=== PATIENT | male | born 1970 | race Asian ===

== ENCOUNTER 2023-06-21 14:01 | Inpatient (IN) | payer MEDICAID ==
[~2023-06-21] VITALS: Ht 167.6 cm; Wt 71.4 kg
[2023-06-21] MEDS ORDERED: LORazepam 2 MG/ML VIAL IVP ONE (15:45)
[2023-06-21] MEDS: LORazepam 2 MG/ML VIAL IM ONE (16:49)
[2023-06-21 18:14] LABS: BASOPHILS % (AUTO) 0.4 % (0.0-2.0); EOSINOPHILS % (AUTO) 1.9 % (1.0-6.0); HEMATOCRIT 45.7 % (41-53); HEMOGLOBIN 15.2 g/dL (13.5-17.5); MEAN CORPUSCULAR HEMOGLOBIN 30.8 pg (26.0-34.0); MEAN CORPUSCULAR HGB CONC 33.2 G/dL (31.0-37.0); MEAN CORPUSCULAR VOLUME 93 fL (80-100); MONOCYTES # (AUTO) 0.8 K/uL (0.1-1.0); MONOCYTES % (AUTO) 10.2 % (2.0-9.0); NEUTROPHILS % (AUTO) 62.5 % (40.0-70.0); PLATELET COUNT (AUTO) 177 K/uL (150-450); RED BLOOD CELL COUNT(AUTO) 4.92 MIL/uL (4.50-5.90); RED CELL DISTRIBUTION WIDTH 13.5 % (11.5-14.5)
[2023-06-21 18:21] LABS: ANION GAP 8 mmol/L (8-16); CARBON DIOXIDE 30 mmol/L (22-29); CHLORIDE 100 mmol/L (98-107); CREATININE 1.23 mg/dL (0.60-1.30); GLOMERULAR FILTR. RATE CALC 51 mL/min (>60); GLUCOSE,RANDOM 94 mg/dL (70-110); POTASSIUM 3.4 mmol/L (3.5-5.1); SODIUM SERUM 138 mmol/L (136-145); UREA NITROGEN, BLOOD 22 mg/dL (7-18)
[2023-06-21 18:28] LABS: B-TYPE NATRIURETIC PEPTIDE 78 pg/mL (0-100)
[2023-06-21 18:33] LABS: TROPONIN I-HIGH SENSITIVITY 35 ng/L (<76)
[2023-06-21 18:41] LABS: ALCOHOL, BLOOD (SERUM) < 3 mg/dL (0-10); AMMONIA 15 umol/L (11-32)
[2023-06-21 18:44] LABS: COVID AG,FIA SOURCE NASAL SWAB
[2023-06-21 18:45] LABS: ALANINE AMINOTRANSFERASE 36 U/L (12-78); ALBUMIN 3.9 g/dL (3.4-5.0); ALKALINE PHOSPHATASE 65 U/L (46-116); ASPARTATE AMINOTRANSFERASE 44 U/L (15-37); CREATINE KINASE, TOTAL ONLY 816 U/L (39-308); TOTAL PROTEIN, SERUM 7.9 g/dL (6.4-8.2)
[2023-06-21 18:47] LABS: LACTIC ACID 1.3 mmol/L (0.4-2.0)
[2023-06-21 19:21] LABS: SARS-COV2 (COVID) ANTIGEN,FIA Negative (Negative)
[2023-06-21] MEDS ORDERED: ACETAMINOPHEN 325 MG TABLET PO PRN (20:15)
[2023-06-21] MEDS ORDERED: 0.9% SODIUM CHLORIDE 10 ML SYRINGE IVP PRN (20:15)
[2023-06-21] MEDS ORDERED: ONDANSETRON HCL 4 MG/2 ML VIAL IVP PRN ×2 (20:15→20:30)
[2023-06-21] MEDS ORDERED: POTASSIUM CHL 10 MEQ/WATER 50 ML IV PRN (20:30)
[2023-06-21] MEDS ORDERED: MAGNESIUM HYDROXIDE SUSPENSION 30 ML UDCUP PO PRN (20:30)
[2023-06-21] MEDS ORDERED: BISACODYL 10 MG RECTAL RECTAL SUPPOSITORY PR PRN (20:30)
[2023-06-21] MEDS ORDERED: POTASSIUM CHLORIDE 20 MEQ ER TABLET PO PRN (20:30)
[2023-06-21] MEDS ORDERED: MORPHINE SULFATE 2 MG/ML SYRINGE IVP PRN (20:30)
[2023-06-21] MEDS: DOCUSATE SODIUM 100 MG CAPSULE PO SCH (21:00)
[2023-06-21] MEDS: MAGNESIUM SULFATE 2 GM, MVI, ADULT NO.1 WITH VIT K 10 ML, THIAMINE 100 MG, FOLIC ACID 1... IV ONE (23:31)
[2023-06-21] MEDS: HEPARIN SODIUM,PORCINE 5,000 UNITS/ML VIAL SQ SCH (23:39)
[2023-06-22 01:40] LABS: APPEARANCE,URINE CLEAR (CLEAR); BILIRUBIN,URINE NEGATIVE (NEGATIVE); COLOR,URINE LIGHT YELLOW (YELLOW); GLUCOSE, URINE (UA) NEGATIVE (NEGATIVE); KETONES,URINE NEGATIVE (NEGATIVE); LEUKOCYTE ESTERASE ,URINE NEGATIVE (NEGATIVE); NITRATE,URINE NEGATIVE (NEGATIVE); OCCULT BLOOD,URINE TRACE (NEGATIVE); PH,URINE 5.5 (5.0-8.0); PH,URINE DRUG SCREEN 5.5 (5.0-8.0); PROTEIN,URINE TRACE mg/dL (NEGATIVE); SPECIFIC GRAVITIY, URINE 1.014 (1.003-1.030); UROBILINOGEN,URINE <=1.0 mg/dL (<=1.0)
[2023-06-22 01:44] LABS: ALCOHOL, URINE DRUG SCREEN NEGATIVE (NEGATIVE); AMPHET/METH SCREEN,URINE POSITIVE (NEGATIVE); BARBITURATE SCREEN, URINE NEGATIVE (NEGATIVE); BENZODIAZEPINES SCREEN,URINE NEGATIVE (NEGATIVE); CANNABINOID SCREEN,URINE NEGATIVE (NEGATIVE); COCAINE SCREEN,URINE NEGATIVE (NEGATIVE); METHADONE SCREEN, URINE NEGATIVE (NEGATIVE); OPIATE SCREEN,URINE NEGATIVE (NEGATIVE); PHENCYCLIDINE SCREEN,URINE NEGATIVE (NEGATIVE)
[2023-06-22 01:49] LABS: BACTERIA,URINE None Seen /HPF (None Seen); SQUAMOUS EPITHELIAL CELL,UR Few /LPF (None Seen); WBC,URINE None Seen /HPF (0-5)
[2023-06-22 06:54] LABS: BASOPHILS % (AUTO) 0.2 % (0.0-2.0); EOSINOPHILS % (AUTO) 1.2 % (1.0-6.0); HEMOGLOBIN 14.6 g/dL (13.5-17.5); LYMPHOCYTES # (AUTO) 1.8 K/uL (1.0-4.8); LYMPHOCYTES % (AUTO) 20.6 % (22.0-44.0); MEAN CORPUSCULAR HEMOGLOBIN 30.9 pg (26.0-34.0); MEAN CORPUSCULAR HGB CONC 33.2 G/dL (31.0-37.0); MEAN CORPUSCULAR VOLUME 93 fL (80-100); MONOCYTES # (AUTO) 0.7 K/uL (0.1-1.0); MONOCYTES % (AUTO) 8.4 % (2.0-9.0); NEUTROPHILS # (AUTO) 6.1 K/uL (1.8-7.7); NEUTROPHILS % (AUTO) 69.6 % (40.0-70.0); PLATELET COUNT (AUTO) 174 K/uL (150-450); RED BLOOD CELL COUNT(AUTO) 4.73 MIL/uL (4.50-5.90); RED CELL DISTRIBUTION WIDTH 13.5 % (11.5-14.5); WHITE BLOOD COUNT (AUTO) 8.8 K/uL (4.5-11.0)
[2023-06-22 06:58] LABS: TROPONIN I-HIGH SENSITIVITY 18 ng/L (<76)
[2023-06-22 07:15] LABS: ALANINE AMINOTRANSFERASE 31 U/L (12-78); ALBUMIN 3.4 g/dL (3.4-5.0); ALKALINE PHOSPHATASE 56 U/L (46-116); ANION GAP 10 mmol/L (8-16); ASPARTATE AMINOTRANSFERASE 36 U/L (15-37); CALCIUM, TOTAL 9.1 mg/dL (8.8-10.5); CARBON DIOXIDE 28 mmol/L (22-29); CHLORIDE 104 mmol/L (98-107); CREATINE KINASE, TOTAL ONLY 453 U/L (39-308); CREATININE 1.12 mg/dL (0.60-1.30); GLOMERULAR FILTR. RATE CALC > 60 mL/min (>60); GLUCOSE,RANDOM 145 mg/dL (70-110); POTASSIUM 3.7 mmol/L (3.5-5.1); SODIUM SERUM 141 mmol/L (136-145); TOTAL PROTEIN, SERUM 6.8 g/dL (6.4-8.2); UREA NITROGEN, BLOOD 21 mg/dL (7-18)
[2023-06-22] MEDS: PANTOPRAZOLE SODIUM 40 MG DR TABLET PO SCH (07:33)
[2023-06-22 10:32] VITALS: BP 145/95; PULSE 67; RESP 18; TEMP 97.8
[2023-06-22] MEDS: AmLODIPine BESYLATE 5 MG TABLET PO SCH (11:30)
[2023-06-22 15:04] VITALS: BP 148/92; PULSE 76; RESP 18; TEMP 97.8
[2023-06-22 15:25] VITALS: O2SAT 98
[2023-06-22 20:25] VITALS: BP 145/90; PULSE 101; RESP 18; TEMP 98.1
[2023-06-22] MEDS: OLANZapine 10 MG RAPDIS TABLET PO SCH (20:53)
[2023-06-23] VITALS (7 sets, daily range): BP systolic 141–158; BP diastolic 84–98; PULSE 77–97; RESP 17–18; TEMP 97.7–98.7; O2SAT 99
[2023-06-23 09:52] LABS: BASOPHILS % (AUTO) 0.3 % (0.0-2.0); EOSINOPHILS % (AUTO) 1.6 % (1.0-6.0); HEMATOCRIT 43.1 % (41-53); HEMOGLOBIN 14.4 g/dL (13.5-17.5); LYMPHOCYTES # (AUTO) 1.8 K/uL (1.0-4.8); LYMPHOCYTES % (AUTO) 19.7 % (22.0-44.0); MEAN CORPUSCULAR HEMOGLOBIN 31.5 pg (26.0-34.0); MEAN CORPUSCULAR HGB CONC 33.4 G/dL (31.0-37.0); MEAN CORPUSCULAR VOLUME 94 fL (80-100); MONOCYTES # (AUTO) 0.7 K/uL (0.1-1.0); MONOCYTES % (AUTO) 7.5 % (2.0-9.0); NEUTROPHILS # (AUTO) 6.6 K/uL (1.8-7.7); NEUTROPHILS % (AUTO) 70.9 % (40.0-70.0); PLATELET COUNT (AUTO) 161 K/uL (150-450); RED BLOOD CELL COUNT(AUTO) 4.56 MIL/uL (4.50-5.90); RED CELL DISTRIBUTION WIDTH 13.2 % (11.5-14.5); WHITE BLOOD COUNT (AUTO) 9.3 K/uL (4.5-11.0)
[2023-06-23 10:16] LABS: ANION GAP 10 mmol/L (8-16); CALCIUM, TOTAL 8.9 mg/dL (8.8-10.5); CARBON DIOXIDE 27 mmol/L (22-29); CHLORIDE 105 mmol/L (98-107); CREATININE 1.23 mg/dL (0.60-1.30); GLOMERULAR FILTR. RATE CALC > 60 mL/min (>60); GLUCOSE,RANDOM 200 mg/dL (70-110); POTASSIUM 3.5 mmol/L (3.5-5.1); SODIUM SERUM 142 mmol/L (136-145); UREA NITROGEN, BLOOD 18 mg/dL (7-18)
[2023-06-23] MEDS: HYDROCODONE/ACETAMINOPHEN 5-325 MG TABLET PO PRN (18:22)
[2023-06-23] MEDS: ZOLPIDEM TARTRATE 5 MG TABLET PO PRN (20:31)
[2023-06-24] VITALS (9 sets, daily range): BP systolic 129–173; BP diastolic 74–103; PULSE 83–173; RESP 18–19; TEMP 97.8–98.8; O2SAT 96–97
[2023-06-24] MEDS: HydrALAZINE HCL 20 MG/ML VIAL IVP PRN (05:16)
[2023-06-24] MEDS: AmLODIPine BESYLATE 5 MG TABLET PO ONE (11:03)
[2023-06-25 02:00] VITALS: BP 155/78; PULSE 96; RESP 16
[2023-06-25 05:10] VITALS: BP 159/91; PULSE 91; RESP 18; TEMP 98.9
[2023-06-25 05:26] LABS: GLUCOMETER DEV NAME(LOC) 5S.2C; GLUCOSE,POINT OF CARE 142 MG/DL (70-110)
[2023-06-25] MEDS: AmLODIPine BESYLATE 5 MG TABLET PO SCH (08:16)
[2023-06-25 08:27] VITALS: BP 153/93; PULSE 108; RESP 19; TEMP 97.8
[2023-06-25 11:27] VITALS: BP 146/82; PULSE 97; RESP 18; TEMP 98.1
[2023-06-25] MEDS: ACETAMINOPHEN 325 MG TABLET PO PRN (18:37)
[2023-06-25 19:33] VITALS: BP 152/89; PULSE 95; RESP 18; TEMP 99.1
[2023-06-25 21:00] VITALS: O2SAT 95
[2023-06-26 00:15] VITALS: BP 149/83; PULSE 93; RESP 19; TEMP 99.7
[2023-06-26 05:32] VITALS: BP 146/78; PULSE 85; RESP 18; TEMP 98.4
[2023-06-26 12:00] VITALS: BP 145/83; PULSE 94; RESP 20; TEMP 98.7
[2023-06-26 19:53] VITALS: BP 146/91; PULSE 86; RESP 20
[2023-06-26 23:13] LABS: COVID AG,FIA SOURCE NASAL SWAB
[2023-06-26 23:36] LABS: SARS-COV2 (COVID) ANTIGEN,FIA Negative (Negative)
[2023-06-27] MEDS ORDERED: HALOPERIDOL LACTATE 5 MG/ML VIAL ONE ×2 (01:00→01:08)
[2023-06-27] MEDS ORDERED: HALOPERIDOL DECANOATE 50 MG/ML VIAL IM ONE (01:00)
[2023-06-27] MEDS: LORazepam 2 MG/ML VIAL IM ONE (01:17)
[2023-06-27] MEDS: HALOPERIDOL LACTATE 5 MG/ML VIAL IM ONE (01:17)
[2023-06-27] MEDS: DiphenhydrAMINE HCL 50 MG/ML VIAL IM ONE (01:18)
== END 2023-06-27 02:15 | DRG 52 ==
LOC: EMS 14:04 → EDBD 20:31 → 5S 20:31 → AHU 22:47 → 5S 06-22 06:35 → 6N 06-26 12:12
PROVIDERS: ADMIT Internal Medicine; ATTEND Internal Medicine
DX: G92.8 Other toxic encephalopathy (principal); F20.0 Paranoid schizophrenia; I16.0 Hypertensive urgency; F15.10 Other stimulant abuse, uncomplicated; I10 Essential (primary) hypertension; T43.655A Adverse effect of methamphetamines, initial encounter; E87.6 Hypokalemia; E11.9 Type 2 diabetes mellitus without complications; F29 Unspecified psychosis not due to a substance or known physiological condition; Z20.822 Contact with and (suspected) exposure to COVID-19; F19.10 Other psychoactive substance abuse, uncomplicated; Z79.899 Other long term (current) drug therapy; Y93.89 Activity, other specified; Y92.89 Other specified places as the place of occurrence of the external cause; Y99.8 Other external cause status
CPT/HCPCS: 70450; 71045; 72125; 80048; 80053; 80307; 81001; 82140; 82550; 82962; 83036; 83605; 83880; 84484; 85025; 87040; 93005; 99285; G0378; G0480; J0360; J1200; J1630; J1631; J1644; J2060; J3411; J3475; J3490; J7030; 36415-L1; 36415-TC